=== PATIENT | male | born 1955 | race African-American/Black ===

== ENCOUNTER 2025-04-11 21:12 | Inpatient (IN) | payer MEDICAID ==
[~2025-04-11] VITALS: Ht 182.9 cm; Wt 74.4 kg
[2025-04-11] MEDS ORDERED: ACETAMINOPHEN 325MG TABLET PO ONE (22:00)
[2025-04-11 22:58] LABS: HEMATOCRIT. 34.1 % (42.0-52.0); HEMOGLOBIN. 11.0 g/dL (14.0-18.0); MEAN PLATELET VOLUME 10.3 fl (7.4-10.4); PLATELET 199 x1000/uL (130-400); RED BLOOD CELL COUNT 3.97 mill/uL (4.7-6.1); RED CELL DISTRIBUTION WIDTH 20.5 % (11.6-14.6)
[2025-04-11 23:08] LABS: INR 1.5
[2025-04-11 23:10] LABS: EOSINOPHILS % MANUAL 4.0 % (0.0-5.0); LYMPHOCYTES % MANUAL 5.0 % (20.0-50.0); MONOCYTES % MANUAL 7.0 % (2.0-8.0); NEUTROPHILS % MANUAL 84.0 % (45.0-75.0); PLATELET ESTIMATE NORMAL
[2025-04-11 23:14] LABS: CREATININE 1.2 mg/dL (0.6-1.3); UREA NITROGEN BLOOD 31 mg/dL (9-23)
[2025-04-11 23:15] LABS: TROPONIN I HIGH SENSITIVITY 23 ng/L (3.0-53)
[2025-04-11 23:16] LABS: ASPARTATE AMINOTRANSFERASE 201 IU/L (<34); BILIRUBIN DIRECT 2.3 mg/dL (<=3.0)
[2025-04-11 23:17] LABS: BILIRUBIN TOTAL 4.0 mg/dL (0.1-1.0); PROTEIN TOTAL 7.4 g/dL (6.0-8.3)
[2025-04-12] MEDS: ACETAMINOPHEN 325MG TABLET PO NR (00:55)
[2025-04-12] MEDS: SODIUM CHLORIDE 0.9% 500 ML IV ONE (00:55)
[2025-04-12] MEDS: SODIUM CHLORIDE 0.9% 1,000 ML IV ONE (01:00)
[2025-04-12 02:55] VITALS: BP 144/89; PULSE 78; RESP 13; TEMP 36.3624
[2025-04-12] MEDS ORDERED: ONDANSETRON HCL 4MG/2ML INJ IV PRN (05:45)
[2025-04-12] MEDS ORDERED: ENOXAPARIN 40MG/0.4ML SYR SUBCUT NR (05:45)
[2025-04-12] MEDS: PANTOPRAZOLE 40MG DR TABLET PO SCH (06:33)
[2025-04-12] MEDS: BLOOD SUGAR DIAGNOSTIC STRIP TEST SCH (06:40)
[2025-04-12] MEDS: INSULIN LISPRO 100 UNITS/ML SUBCUT SCH (07:20)
[2025-04-12 08:00] VITALS: BP 152/72; PULSE 83; RESP 18; TEMP 36.3; O2SAT 97
[2025-04-12] MEDS: SODIUM CHLORIDE 0.9% 1,000 ML IV SCH (08:33)
[2025-04-12] MEDS: ENOXAPARIN 40MG/0.4ML SYR SUBCUT SCH (08:33)
[2025-04-12 09:29] LABS: HEMATOCRIT. 33.2 % (42.0-52.0); HEMOGLOBIN. 10.8 g/dL (14.0-18.0); MEAN PLATELET VOLUME 9.3 fl (7.4-10.4); PLATELET 163 x1000/uL (130-400); RED BLOOD CELL COUNT 3.86 mill/uL (4.7-6.1); RED CELL DISTRIBUTION WIDTH 20.1 % (11.6-14.6)
[2025-04-12 09:46] LABS: CREATININE 1.0 mg/dL (0.6-1.3); UREA NITROGEN BLOOD 34 mg/dL (9-23)
[2025-04-12 10:32] LABS: BAND% 4.0 % (1.0-6.0); EOSINOPHILS % MANUAL 1.0 % (0.0-5.0); LYMPHOCYTES % MANUAL 4.0 % (20.0-50.0); MONOCYTES % MANUAL 10.0 % (2.0-8.0); NEUTROPHILS % MANUAL 81.0 % (45.0-75.0); PLATELET ESTIMATE NORMAL
[2025-04-12 12:00] VITALS: BP 157/83; PULSE 83; RESP 13; TEMP 36.7; O2SAT 98
[2025-04-12 16:00] VITALS: BP 149/82; PULSE 97; RESP 21; TEMP 36.4; O2SAT 98
[2025-04-12 19:16] VITALS: BP 171/101; PULSE 95; RESP 16; TEMP 36.4; O2SAT 98
[2025-04-12] MEDS ORDERED: NALOXONE HCL 0.4MG/ML VIAL IV PRN (20:30)
[2025-04-12] MEDS: LEVETIRACETAM 500MG TABLET PO SCH (21:00)
[2025-04-12] MEDS: CLONIDINE 0.1MG TABLET PO PRN (21:22)
[2025-04-12] MEDS ORDERED: LEVETIRACETAM 500MG in NACL 100ML PREMIX IV SCH (22:15)
[2025-04-12] MEDS: HYDRALAZINE 20MG/ML VIAL IV PRN (22:45)
[2025-04-12] MEDS: LEVETIRACETAM 500MG PREMIX 100ML IV SCH (22:45)
[2025-04-13] VITALS: BP 135/106; PULSE 102; RESP 16; TEMP 36.6; O2SAT 98
[2025-04-13 04:00] VITALS: BP 146/119; PULSE 108; RESP 24; TEMP 36.6; O2SAT 96
[2025-04-13 07:27] LABS: HEMATOCRIT. 31.8 % (42.0-52.0); HEMOGLOBIN. 10.7 g/dL (14.0-18.0); MEAN PLATELET VOLUME 9.4 fl (7.4-10.4); PLATELET 158 x1000/uL (130-400); RED BLOOD CELL COUNT 3.76 mill/uL (4.7-6.1); RED CELL DISTRIBUTION WIDTH 20.1 % (11.6-14.6)
[2025-04-13 07:45] LABS: CREATININE 0.9 mg/dL (0.6-1.3)
[2025-04-13 07:46] LABS: UREA NITROGEN BLOOD 33 mg/dL (9-23)
[2025-04-13 08:00] VITALS: BP 167/84; PULSE 102; RESP 24; TEMP 36.7; O2SAT 97
[2025-04-13 09:07] LABS: BG BASE EXCESS 1.2 mmol/L (-2.0-3.0); BG CARBOXYHEMOGLOBIN 0.8 % (0.5-1.5); BG DEOXYHEMOGLOBIN 2.7 % (0.0-5.0); BG HCO3 ACT 24.8 mmol/L (21.0-28.0); BG METHEMOGLOBIN 0.3 % (0.5-1.5); BG OXYGEN SATURATION 97.3 % (94.0-98.0); BG OXYHEMOGLOBIN 96.2 % (94.0-98.0); BG PCO2 35.7 mmHg (35.0-48.0); BG PH 7.460 (7.350-7.450); BG PO2 91.0 mmHg (83.0-108.0); BG SAMPLE SITE RIGHT RADIAL; BG TOTAL HEMOGLOBIN 11.4 g/dL (13.5-17.5); BG VENT MODE ROOM AIR
[2025-04-13 09:56] LABS: CLARITY URINE CLEAR (CLEAR); COLOR URINE DARK YELLOW (YELLOW); GLUCOSE URINE NEGATIVE (NEGATIVE); KETONES URINE 1+ (NEGATIVE); LEUKOCYTE ESTERASE URINE NEGATIVE (NEGATIVE); NITRITE URINE NEGATIVE (NEGATIVE); OCCULT BLOOD URINE TRACE (NEGATIVE); PH URINE 6.0 (4.5-8.0); PROTEIN URINE 1+ (NEGATIVE); SPECIFIC GRAVITY URINE 1.015 (1.005-1.030); UROBILINOGEN URINE >8.0 E.U./dL (0.2-1.0)
[2025-04-13] MEDS: DEXTROSE 5% WATER 1,000 ML IV SCH (09:56)
[2025-04-13 11:14] LABS: FINE GRANULAR CASTS URINE 0-5 /lpf; HYALINE CASTS URINE 0-5 /lpf
[2025-04-13 11:15] LABS: WHITE BLOOD CELL CASTS URINE 0-5 /lpf
[2025-04-13 11:16] LABS: WAXY CASTS URINE 0-5 /lpf; WBC URINE 0-2 /hpf (0-2)
[2025-04-13 11:17] LABS: SQUAMOUS EPITHELIAL CELL URINE FEW /lpf (RARE/1+)
[2025-04-13 11:18] LABS: BACTERIA URINE 1+
[2025-04-13 12:00] VITALS: BP 158/104; PULSE 110; RESP 25; TEMP 36.8; O2SAT 97
[2025-04-13 15:14] LABS: EOSINOPHILS % MANUAL 4.0 % (0.0-5.0); LYMPHOCYTES % MANUAL 7.0 % (20.0-50.0); MONOCYTES % MANUAL 9.0 % (2.0-8.0); NEUTROPHILS % MANUAL 80.0 % (45.0-75.0); PLATELET ESTIMATE NORMAL
[2025-04-13 16:00] VITALS: BP 137/87; PULSE 124; RESP 26; TEMP 36.6; O2SAT 97
[2025-04-13] MEDS: LACTULOSE 20G/30ML UDC GT SCH (17:57)
[2025-04-13 20:00] VITALS: BP 154/98; PULSE 120; RESP 29; TEMP 38.3; O2SAT 95
[2025-04-13] MEDS: ACETAMINOPHEN 650MG/20.3ML UDC PO PRN (22:00)
[2025-04-14] VITALS: BP 127/89; PULSE 116; RESP 27; TEMP 37.4; O2SAT 96
[2025-04-14 04:00] VITALS: BP 156/99; PULSE 113; RESP 28; TEMP 37.2; O2SAT 95
[2025-04-14] MEDS: METOCLOPRAMIDE HCL 10MG/2ML VIAL IV SCH (05:16)
[2025-04-14 06:57] LABS: HEMATOCRIT. 32.6 % (42.0-52.0); HEMOGLOBIN. 11.0 g/dL (14.0-18.0); MEAN PLATELET VOLUME 9.4 fl (7.4-10.4); PLATELET 144 x1000/uL (130-400); RED BLOOD CELL COUNT 3.82 mill/uL (4.7-6.1); RED CELL DISTRIBUTION WIDTH 21.3 % (11.6-14.6)
[2025-04-14 07:08] LABS: CREATININE 1.1 mg/dL (0.6-1.3); UREA NITROGEN BLOOD 32 mg/dL (9-23)
[2025-04-14 08:00] VITALS: BP 127/78; PULSE 113; RESP 32; TEMP 35.9; O2SAT 97
[2025-04-14] MEDS: PANTOPRAZOLE SODIUM 40 MG/VIAL IV SCH (08:41)
[2025-04-14 09:43] LABS: BG BASE EXCESS 1.8 mmol/L (-2.0-3.0); BG CARBOXYHEMOGLOBIN 0.3 % (0.5-1.5); BG DEOXYHEMOGLOBIN 3.7 % (0.0-5.0); BG FLOW(L/min) 0.50 L/min; BG FRACTION INSPIRED OXYGEN 22; BG HCO3 ACT 24.0 mmol/L (21.0-28.0); BG METHEMOGLOBIN 0.3 % (0.5-1.5); BG OXYGEN SATURATION 96.3 % (94.0-98.0); BG OXYHEMOGLOBIN 95.7 % (94.0-98.0); BG PCO2 29.6 mmHg (35.0-48.0); BG PH 7.526 (7.350-7.450); BG PO2 85.8 mmHg (83.0-108.0); BG SAMPLE SITE RIGHT RADIAL; BG TOTAL HEMOGLOBIN 11.3 g/dL (13.5-17.5); BG VENT MODE NASAL CANNULA
[2025-04-14] MEDS: POTASSIUM CHLORIDE 20MEQ TABLET SR PO SCH (10:10)
[2025-04-14 10:43] LABS: BAND% 20.0 % (1.0-6.0); LYMPHOCYTES % MANUAL 7.0 % (20.0-50.0); MONOCYTES % MANUAL 8.0 % (2.0-8.0); NEUTROPHILS % MANUAL 65.0 % (45.0-75.0); PLATELET ESTIMATE NORMAL
[2025-04-14 12:00] VITALS: BP 127/78; PULSE 113; RESP 30; TEMP 37.6; O2SAT 97
[2025-04-14 16:00] VITALS: BP 135/95; PULSE 109; RESP 37; TEMP 37.3; O2SAT 94
[2025-04-14 20:00] VITALS: BP 145/85; PULSE 125; RESP 40; TEMP 37.1; O2SAT 91
[2025-04-15] VITALS (65 sets, daily range): BP systolic 121–186; BP diastolic 76–101; PULSE 101–141; RESP 23–47; TEMP 36.6–39.2; O2SAT 90–98
[2025-04-15 00:17] LABS: BG BASE EXCESS 0.7 mmol/L (-2.0-3.0); BG CARBOXYHEMOGLOBIN 0.8 % (0.5-1.5); BG DEOXYHEMOGLOBIN 7.5 % (0.0-5.0); BG FLOW(L/min) 2.00 L/min; BG FRACTION INSPIRED OXYGEN 28; BG HCO3 ACT 22.0 mmol/L (21.0-28.0); BG METHEMOGLOBIN 0.0 % (0.5-1.5); BG OXYGEN SATURATION 92.4 % (94.0-98.0); BG OXYHEMOGLOBIN 91.7 % (94.0-98.0); BG PCO2 26.2 mmHg (35.0-48.0); BG PH 7.542 (7.350-7.450); BG PO2 61.0 mmHg (83.0-108.0); BG TOTAL HEMOGLOBIN 12.6 g/dL (13.5-17.5); BG VENT MODE NASAL CANNULA
[2025-04-15] MEDS: CEFTRIAXONE 2GM/50ML 50 ML IV SCH (03:05)
[2025-04-15] MEDS: VANCOMYCIN 1.5GM PMX (XELLIA) 300 ML IV SCH (03:43)
[2025-04-15] MEDS: IPRATROPIUM/ALBUTEROL 0.5-3(2.5)MG/3ML NEB HHN SCH (04:42)
[2025-04-15 06:07] LABS: HEMATOCRIT. 34.9 % (42.0-52.0); HEMOGLOBIN. 11.3 g/dL (14.0-18.0); MEAN PLATELET VOLUME 9.8 fl (7.4-10.4); PLATELET 135 x1000/uL (130-400); RED BLOOD CELL COUNT 4.02 mill/uL (4.7-6.1); RED CELL DISTRIBUTION WIDTH 21.1 % (11.6-14.6)
[2025-04-15 06:33] LABS: CREATININE 1.1 mg/dL (0.6-1.3); UREA NITROGEN BLOOD 32 mg/dL (9-23)
[2025-04-15] MEDS ORDERED: POTASSIUM CHLORIDE 40 MEQ in DEXT 5% WATER 230 ML IV ONE (07:15)
[2025-04-15] MEDS: KCL 20MEQ/100ML X 2 FOR TOTAL KCL 40MEQ/200ML IV SCH (08:12)
[2025-04-15] MEDS: MORPHINE SULFATE 2 MG/ML INJ (NOT FOR IM USE) IV PRN (12:59)
[2025-04-15 13:54] LABS: BG BASE EXCESS -2.1 mmol/L (-2.0-3.0); BG CARBOXYHEMOGLOBIN 0.4 % (0.5-1.5); BG DEOXYHEMOGLOBIN 4.1 % (0.0-5.0); BG FLOW(L/min) 20.00 L/min; BG FRACTION INSPIRED OXYGEN 40; BG HCO3 ACT 20.2 mmol/L (21.0-28.0); BG METHEMOGLOBIN 0.0 % (0.5-1.5); BG OXYGEN SATURATION 95.9 % (94.0-98.0); BG OXYHEMOGLOBIN 95.5 % (94.0-98.0); BG PCO2 27.7 mmHg (35.0-48.0); BG PH 7.481 (7.350-7.450); BG PO2 78.2 mmHg (83.0-108.0); BG SAMPLE SITE RIGHT RADIAL; BG TOTAL HEMOGLOBIN 12.0 g/dL (13.5-17.5); BG VENT MODE HIGH FLOW
[2025-04-15 16:30] LABS: BAND% 10.0 % (1.0-6.0); LYMPHOCYTES % MANUAL 7.0 % (20.0-50.0); MONOCYTES % MANUAL 8.0 % (2.0-8.0); NEUTROPHILS % MANUAL 75.0 % (45.0-75.0); PLATELET ESTIMATE NORMAL
[2025-04-15] MEDS: VANCOMYCIN 750MG/150ML (BAXTER) IV SCH (17:09)
[2025-04-15] MEDS: SODIUM CHLORIDE 0.9% 1,000 ML IV SCH (20:31)
[2025-04-15] MEDS: PAMIDRONATE DISODIUM 90 MG in SODIUM CHLORIDE 0.9% 1,000 ML IV SCH (21:02)
[2025-04-16] VITALS (94 sets, daily range): BP systolic 118–175; BP diastolic 79–110; PULSE 108–133; RESP 19–48; TEMP 37–38.1; O2SAT 90–98
[2025-04-16 06:51] LABS: CREATININE 1.0 mg/dL (0.6-1.3)
[2025-04-16 06:52] LABS: UREA NITROGEN BLOOD 35 mg/dL (9-23)
[2025-04-16 07:59] LABS: HEMATOCRIT. 33.8 % (42.0-52.0); HEMOGLOBIN. 11.0 g/dL (14.0-18.0); MEAN PLATELET VOLUME 10.4 fl (7.4-10.4); PLATELET 137 x1000/uL (130-400); RED BLOOD CELL COUNT 3.94 mill/uL (4.7-6.1); RED CELL DISTRIBUTION WIDTH 21.2 % (11.6-14.6)
[2025-04-16] MEDS: METRONIDAZOLE 500 MG PREMIX 100 ML IV SCH (11:51)
[2025-04-16] MEDS ORDERED: CEFEPIME 1GM IN DEXT 5% 50ML IV SCH (12:00)
[2025-04-16 12:53] LABS: BG BASE EXCESS -4.6 mmol/L (-2.0-3.0); BG CARBOXYHEMOGLOBIN 0.6 % (0.5-1.5); BG DEOXYHEMOGLOBIN 3.5 % (0.0-5.0); BG FLOW(L/min) 20.00 L/min; BG FRACTION INSPIRED OXYGEN 40; BG HCO3 ACT 18.3 mmol/L (21.0-28.0); BG METHEMOGLOBIN 0.2 % (0.5-1.5); BG OXYGEN SATURATION 96.5 % (94.0-98.0); BG OXYHEMOGLOBIN 95.7 % (94.0-98.0); BG PCO2 27.7 mmHg (35.0-48.0); BG PH 7.439 (7.350-7.450); BG PO2 85.5 mmHg (83.0-108.0); BG SAMPLE SITE RIGHT RADIAL; BG TOTAL HEMOGLOBIN 11.7 g/dL (13.5-17.5); BG VENT MODE HIGH FLOW
[2025-04-16] MEDS: CEFEPIME 2GM PREMIX 100ML IV SCH (14:01)
[2025-04-16 14:21] LABS: BAND% 31.0 % (1.0-6.0); LYMPHOCYTES % MANUAL 4.0 % (20.0-50.0); MONOCYTES % MANUAL 5.0 % (2.0-8.0); NEUTROPHILS % MANUAL 60.0 % (45.0-75.0); NUCLEATED RED BLOOD CELLS 1 /100 WBC
[2025-04-16 14:22] LABS: PLATELET ESTIMATE NORMAL
[2025-04-16] MEDS: FUROSEMIDE 40MG/4ML VIAL IVP SCH (15:46)
[2025-04-16] MEDS: LEVOFLOXACIN 750MG PREMIX 150 ML IV SCH (17:26)
[2025-04-16] MEDS: BISACODYL 10MG SUPP PR SCH (17:49)
[2025-04-17] VITALS (74 sets, daily range): BP systolic 115–167; BP diastolic 75–102; PULSE 106–144; RESP 25–47; TEMP 36.7–38.3; O2SAT 91–99
[2025-04-17 06:46] LABS: CREATININE 0.9 mg/dL (0.6-1.3); UREA NITROGEN BLOOD 36 mg/dL (9-23)
[2025-04-17 06:47] LABS: HEMATOCRIT. 30.5 % (42.0-52.0); HEMOGLOBIN. 10.0 g/dL (14.0-18.0); MEAN PLATELET VOLUME 9.8 fl (7.4-10.4); PLATELET 115 x1000/uL (130-400); RED BLOOD CELL COUNT 3.56 mill/uL (4.7-6.1); RED CELL DISTRIBUTION WIDTH 21.1 % (11.6-14.6)
[2025-04-17 06:48] LABS: ASPARTATE AMINOTRANSFERASE 307 IU/L (<34)
[2025-04-17 06:49] LABS: BILIRUBIN DIRECT 2.6 mg/dL (<=3.0); BILIRUBIN TOTAL 3.4 mg/dL (0.1-1.0); PHOSPHORUS 1.2 mg/dL (2.5-4.9); PROTEIN TOTAL 6.2 g/dL (6.0-8.3)
[2025-04-17] MEDS: POTASSIUM CHLORIDE 20MEQ/PACKET PO SCH (08:30)
[2025-04-17] MEDS: MAGNESIUM 2 G PREMIX 50 ML IV SCH (08:30)
[2025-04-17 09:53] LABS: BG BASE EXCESS -3.0 mmol/L (-2.0-3.0); BG CARBOXYHEMOGLOBIN 0.6 % (0.5-1.5); BG DEOXYHEMOGLOBIN 2.7 % (0.0-5.0); BG FLOW(L/min) 20.00 L/min; BG FRACTION INSPIRED OXYGEN 40; BG HCO3 ACT 19.1 mmol/L (21.0-28.0); BG METHEMOGLOBIN 0.3 % (0.5-1.5); BG OXYGEN SATURATION 97.3 % (94.0-98.0); BG OXYHEMOGLOBIN 96.4 % (94.0-98.0); BG PCO2 25.5 mmHg (35.0-48.0); BG PH 7.493 (7.350-7.450); BG PO2 87.6 mmHg (83.0-108.0); BG SAMPLE SITE RIGHT RADIAL; BG TOTAL HEMOGLOBIN 11.0 g/dL (13.5-17.5); BG VENT MODE HIGH FLOW
[2025-04-17] MEDS: POTASSIUM PHOSPHATE 30 MMOL in DEXT 5% WATER 490 ML IV SCH (10:52)
[2025-04-17 12:28] LABS: BAND% 33.0 % (1.0-6.0); LYMPHOCYTES % MANUAL 5.0 % (20.0-50.0); MONOCYTES % MANUAL 7.0 % (2.0-8.0); NEUTROPHILS % MANUAL 55.0 % (45.0-75.0); PLATELET ESTIMATE DECREASED
[2025-04-17] MEDS: LACTULOSE 20G/30ML UDC GT SCH (13:09)
[2025-04-18] VITALS (59 sets, daily range): BP systolic 115–160; BP diastolic 79–114; PULSE 113–127; RESP 18–46; TEMP 36.7–37.8; O2SAT 94–99
[2025-04-18 05:53] LABS: CREATININE 0.9 mg/dL (0.6-1.3)
[2025-04-18 05:54] LABS: UREA NITROGEN BLOOD 40 mg/dL (9-23)
[2025-04-18 05:56] LABS: PHOSPHORUS 1.9 mg/dL (2.5-4.9)
[2025-04-18 06:28] LABS: HEMATOCRIT. 31.4 % (42.0-52.0); HEMOGLOBIN. 9.9 g/dL (14.0-18.0); MEAN PLATELET VOLUME 10.3 fl (7.4-10.4); PLATELET 112 x1000/uL (130-400); RED BLOOD CELL COUNT 3.59 mill/uL (4.7-6.1); RED CELL DISTRIBUTION WIDTH 21.5 % (11.6-14.6)
[2025-04-18 07:49] LABS: BAND% 12.0 % (1.0-6.0); EOSINOPHILS % MANUAL 1.0 % (0.0-5.0); LYMPHOCYTES % MANUAL 6.0 % (20.0-50.0); MONOCYTES % MANUAL 11.0 % (2.0-8.0); NEUTROPHILS % MANUAL 70.0 % (45.0-75.0)
[2025-04-18 07:50] LABS: PLATELET ESTIMATE SLIGHTLY DECREASED
[2025-04-18 08:59] LABS: BG BASE EXCESS -2.5 mmol/L (-2.0-3.0); BG CARBOXYHEMOGLOBIN 0.8 % (0.5-1.5); BG DEOXYHEMOGLOBIN 2.4 % (0.0-5.0); BG FLOW(L/min) 20.00 L/min; BG FRACTION INSPIRED OXYGEN 30; BG HCO3 ACT 20.8 mmol/L (21.0-28.0); BG METHEMOGLOBIN 0.1 % (0.5-1.5); BG OXYGEN SATURATION 97.6 % (94.0-98.0); BG OXYHEMOGLOBIN 96.7 % (94.0-98.0); BG PCO2 30.6 mmHg (35.0-48.0); BG PH 7.451 (7.350-7.450); BG PO2 97.1 mmHg (83.0-108.0); BG SAMPLE SITE RIGHT RADIAL; BG TOTAL HEMOGLOBIN 9.5 g/dL (13.5-17.5); BG VENT MODE HIGH FLOW
[2025-04-18] MEDS: DEXTROSE 5% WATER 1,000 ML IV SCH (15:25)
[2025-04-18] MEDS: POTASSIUM PHOSPHATE 15 MMOL in DEXT 5% WATER 245 ML IV SCH (17:27)
[2025-04-19] VITALS (27 sets, daily range): BP systolic 122–155; BP diastolic 81–108; PULSE 96–121; RESP 14–37; TEMP 36.8–37.4; O2SAT 95–98
[2025-04-19] MEDS: HYDROMORPHONE HCL/PF 1MG/ML INJ IV PRN (00:59)
[2025-04-19 06:46] LABS: HEMATOCRIT. 30.4 % (42.0-52.0); HEMOGLOBIN. 9.7 g/dL (14.0-18.0); MEAN PLATELET VOLUME 10.1 fl (7.4-10.4); PLATELET 122 x1000/uL (130-400); RED BLOOD CELL COUNT 3.49 mill/uL (4.7-6.1); RED CELL DISTRIBUTION WIDTH 21.9 % (11.6-14.6)
[2025-04-19 07:01] LABS: CREATININE 0.9 mg/dL (0.6-1.3); UREA NITROGEN BLOOD 36 mg/dL (9-23)
[2025-04-19 07:03] LABS: PHOSPHORUS 1.8 mg/dL (2.5-4.9)
[2025-04-19 09:59] LABS: BAND% 17.0 % (1.0-6.0); EOSINOPHILS % MANUAL 1.0 % (0.0-5.0); LYMPHOCYTES % MANUAL 6.0 % (20.0-50.0); MONOCYTES % MANUAL 15.0 % (2.0-8.0); NEUTROPHILS % MANUAL 61.0 % (45.0-75.0); PLATELET ESTIMATE SLIGHTLY DECREASED
[2025-04-19] MEDS: POTASSIUM PHOSPHATE 20 MMOL in DEXT 5% WATER 243.3333 ML IV ONE (10:42)
[2025-04-19] MEDS ORDERED: NALOXONE HCL 0.4MG/ML VIAL IV PRN (11:00)
[2025-04-19] MEDS: HYDROCODONE/ACETAMINOPHEN 5/325MG TABLET PO PRN (13:54)
[2025-04-20] VITALS (8 sets, daily range): BP systolic 119–138; BP diastolic 73–86; PULSE 103–116; RESP 18–28; TEMP 36.2–37.1; O2SAT 93–97
[2025-04-20 06:55] LABS: HEMATOCRIT. 30.1 % (42.0-52.0); HEMOGLOBIN. 9.7 g/dL (14.0-18.0); MEAN PLATELET VOLUME 10.4 fl (7.4-10.4); PLATELET 157 x1000/uL (130-400); RED BLOOD CELL COUNT 3.48 mill/uL (4.7-6.1); RED CELL DISTRIBUTION WIDTH 21.5 % (11.6-14.6)
[2025-04-20 07:07] LABS: CREATININE 0.8 mg/dL (0.6-1.3); UREA NITROGEN BLOOD 30 mg/dL (9-23)
[2025-04-20 07:09] LABS: PHOSPHORUS 1.2 mg/dL (2.5-4.9)
[2025-04-20] MEDS: SODIUM CHLORIDE 0.45% 1,000 ML IV ONE (07:31)
[2025-04-20 09:43] LABS: BAND% 13.0 % (1.0-6.0); EOSINOPHILS % MANUAL 1.0 % (0.0-5.0); LYMPHOCYTES % MANUAL 2.0 % (20.0-50.0); MONOCYTES % MANUAL 14.0 % (2.0-8.0); NEUTROPHILS % MANUAL 70.0 % (45.0-75.0); PLATELET ESTIMATE NORMAL
[2025-04-20] MEDS: FUROSEMIDE 20MG/2ML VIAL IVP SCH (12:54)
[2025-04-20] MEDS: POTASSIUM PHOSPHATE 20 MMOL in DEXT 5% WATER 243.3333 ML IV NR (15:25)
[2025-04-20 15:29] LABS: BG BASE EXCESS -0.5 mmol/L (-2.0-3.0); BG CARBOXYHEMOGLOBIN 0.3 % (0.5-1.5); BG DEOXYHEMOGLOBIN 3.8 % (0.0-5.0); BG FLOW(L/min) 1.00 L/min; BG FRACTION INSPIRED OXYGEN 24; BG HCO3 ACT 22.5 mmol/L (21.0-28.0); BG METHEMOGLOBIN 0.3 % (0.5-1.5); BG OXYGEN SATURATION 96.2 % (94.0-98.0); BG OXYHEMOGLOBIN 95.6 % (94.0-98.0); BG PCO2 31.5 mmHg (35.0-48.0); BG PH 7.472 (7.350-7.450); BG PO2 83.1 mmHg (83.0-108.0); BG SAMPLE SITE RIGHT RADIAL; BG TOTAL HEMOGLOBIN 10.6 g/dL (13.5-17.5); BG VENT MODE NASAL CANNULA
[2025-04-20] MEDS: POTASSIUM PHOSPHATE 10 MMOL in DEXT 5% WATER 246.6667 ML IV NR (18:49)
[2025-04-21] VITALS: BP 122/77; PULSE 105; RESP 18; TEMP 36.5; O2SAT 96
[2025-04-21 03:56] VITALS: BP 127/77; PULSE 101; RESP 18; TEMP 36.6; O2SAT 98
[2025-04-21 05:52] LABS: CREATININE 0.7 mg/dL (0.6-1.3); UREA NITROGEN BLOOD 28 mg/dL (9-23)
[2025-04-21 05:54] LABS: PHOSPHORUS 1.7 mg/dL (2.5-4.9)
[2025-04-21 06:57] LABS: HEMATOCRIT. 30.2 % (42.0-52.0); HEMOGLOBIN. 9.7 g/dL (14.0-18.0); MEAN PLATELET VOLUME 11.1 fl (7.4-10.4); PLATELET 173 x1000/uL (130-400); RED BLOOD CELL COUNT 3.48 mill/uL (4.7-6.1); RED CELL DISTRIBUTION WIDTH 21.4 % (11.6-14.6)
[2025-04-21 08:00] VITALS: BP 134/87; PULSE 103; RESP 21; TEMP 37; O2SAT 98
[2025-04-21] MEDS: POTASSIUM PHOSPHATE 15 MMOL in DEXT 5% WATER 245 ML IV SCH (09:03)
[2025-04-21 12:00] VITALS: BP 117/84; PULSE 105; RESP 24; TEMP 36.9; O2SAT 98
[2025-04-21] MEDS: FUROSEMIDE 20MG/2ML VIAL IVP NR (14:15)
[2025-04-21 16:00] VITALS: BP 122/71; PULSE 108; RESP 20; TEMP 36.7; O2SAT 98
[2025-04-21] MEDS: SODIUM PHOSPHATE 20 MMOL in DEXT 5% WATER 243.3333 ML IV SCH (17:48)
[2025-04-21 19:46] LABS: EOSINOPHILS % MANUAL 1.0 % (0.0-5.0); LYMPHOCYTES % MANUAL 6.0 % (20.0-50.0); MONOCYTES % MANUAL 11.0 % (2.0-8.0); NEUTROPHILS % MANUAL 82.0 % (45.0-75.0); PLATELET ESTIMATE NORMAL
[2025-04-21 20:00] VITALS: BP 123/86; PULSE 105; RESP 18; TEMP 37.1; O2SAT 96
[2025-04-22] VITALS (7 sets, daily range): BP systolic 122–143; BP diastolic 72–86; PULSE 87–100; RESP 17–20; TEMP 36.4–37.4; O2SAT 96–98
[2025-04-22 07:36] LABS: CREATININE 0.7 mg/dL (0.6-1.3); UREA NITROGEN BLOOD 27 mg/dL (9-23)
[2025-04-22 07:38] LABS: PHOSPHORUS 2.2 mg/dL (2.5-4.9)
[2025-04-22 08:05] LABS: HEMATOCRIT. 28.6 % (42.0-52.0); HEMOGLOBIN. 9.2 g/dL (14.0-18.0); MEAN PLATELET VOLUME 11.1 fl (7.4-10.4); PLATELET 197 x1000/uL (130-400); RED BLOOD CELL COUNT 3.28 mill/uL (4.7-6.1); RED CELL DISTRIBUTION WIDTH 21.2 % (11.6-14.6)
[2025-04-22] MEDS: PAMIDRONATE DISODIUM IV SCH (10:03)
[2025-04-22] MEDS: SODIUM CHLORIDE 0.9% IV SCH (10:03)
[2025-04-22 16:17] LABS: LYMPHOCYTES % MANUAL 1.0 % (20.0-50.0); MONOCYTES % MANUAL 10.0 % (2.0-8.0); NEUTROPHILS % MANUAL 89.0 % (45.0-75.0); PLATELET ESTIMATE NORMAL
[2025-04-22] MEDS: POTASSIUM PHOSPHATE 15 MMOL in DEXT 5% WATER 245 ML IV SCH (20:32)
[2025-04-23] VITALS: BP 131/75; PULSE 92; RESP 20; TEMP 36.3; O2SAT 97
[2025-04-23 04:00] VITALS: BP 120/75; PULSE 90; RESP 20; TEMP 36.2; O2SAT 97
[2025-04-23 07:51] LABS: CREATININE 0.6 mg/dL (0.6-1.3); UREA NITROGEN BLOOD 26 mg/dL (9-23)
[2025-04-23 07:53] LABS: PHOSPHORUS 2.0 mg/dL (2.5-4.9)
[2025-04-23 08:42] VITALS: BP 128/81; PULSE 109; RESP 18; TEMP 37.1; O2SAT 95
[2025-04-23 08:42] LABS: BASOPHILS % 0.2 % (0.0-2.0); EOSINOPHILS % 1.3 % (0.0-5.0); HEMATOCRIT. 31.4 % (42.0-52.0); HEMOGLOBIN. 9.9 g/dL (14.0-18.0); LYMPHOCYTES % 11.0 % (20.0-50.0); MEAN PLATELET VOLUME 11.1 fl (7.4-10.4); MONOCYTES % 3.6 % (2.0-8.0); NEUTROPHILS % 83.9 % (40.0-76.0); PLATELET 238 x1000/uL (130-400); RED BLOOD CELL COUNT 3.58 mill/uL (4.7-6.1); RED CELL DISTRIBUTION WIDTH 21.2 % (11.6-14.6)
[2025-04-23 08:51] LABS: ASPARTATE AMINOTRANSFERASE 395 IU/L (<34); BILIRUBIN DIRECT 2.8 mg/dL (<=3.0); BILIRUBIN TOTAL 4.2 mg/dL (0.1-1.0); PROTEIN TOTAL 6.3 g/dL (6.0-8.3)
[2025-04-23 09:10] LABS: INR 1.3
[2025-04-23 12:15] VITALS: BP 124/83; PULSE 109; RESP 18; TEMP 36.6; O2SAT 98
[2025-04-23] MEDS: POTASSIUM PHOSPHATE 15 MMOL in DEXT 5% WATER 245 ML IV NR (12:51)
[2025-04-23 16:00] VITALS: BP_SYST 121; BP_SYST 127; BP_DIAS 66; BP_DIAS 76; PULSE 96; PULSE 97; RESP 18; TEMP 37.2; O2SAT 97; O2SAT 98
[2025-04-23 20:00] VITALS: BP 114/77; PULSE 99; RESP 17; TEMP 36.4; O2SAT 96
[2025-04-24] VITALS: BP 123/73; PULSE 98; RESP 18; TEMP 36.2; O2SAT 93
[2025-04-24 04:00] VITALS: BP 130/80; PULSE 101; RESP 18; TEMP 36.3; O2SAT 94
[2025-04-24 05:03] LABS: HEMATOCRIT. 29.2 % (42.0-52.0); HEMOGLOBIN. 9.2 g/dL (14.0-18.0); MEAN PLATELET VOLUME 10.9 fl (7.4-10.4); PLATELET 230 x1000/uL (130-400); RED BLOOD CELL COUNT 3.34 mill/uL (4.7-6.1); RED CELL DISTRIBUTION WIDTH 21.5 % (11.6-14.6)
[2025-04-24 05:25] LABS: CREATININE 0.7 mg/dL (0.6-1.3); UREA NITROGEN BLOOD 27 mg/dL (9-23)
[2025-04-24 05:27] LABS: PHOSPHORUS 1.9 mg/dL (2.5-4.9)
[2025-04-24 08:00] VITALS: BP 130/75; PULSE 94; RESP 18; TEMP 36.3; O2SAT 98
[2025-04-24 09:55] LABS: BAND% 24.0 % (1.0-6.0); LYMPHOCYTES % MANUAL 1.0 % (20.0-50.0); MONOCYTES % MANUAL 7.0 % (2.0-8.0); NEUTROPHILS % MANUAL 68.0 % (45.0-75.0); PLATELET ESTIMATE NORMAL
[2025-04-24 12:00] VITALS: BP 132/77; PULSE 88; RESP 18; TEMP 35.9; O2SAT 99
[2025-04-24] MEDS: DEXT 5%/0.2% NACL 1,000 ML IV SCH (14:00)
[2025-04-24] MEDS: GUAIFENESIN-DM 200MG-20MG/10ML UDC PO PRN (14:24)
[2025-04-24] MEDS: CEFTRIAXONE 1GM/50ML 50 ML IV SCH (14:25)
[2025-04-24] MEDS: POTASSIUM-SODIUM PHOSPHATE POWDER PACKET PO SCH (14:25)
[2025-04-24] MEDS ORDERED: HYDRALAZINE 10 MG in SODIUM CHLORIDE 0.9% 49.5 ML IV PRN (14:45)
[2025-04-24 16:00] VITALS: BP 125/80; PULSE 98; RESP 20; TEMP 36.2; O2SAT 98
[2025-04-24 20:00] VITALS: BP 125/71; PULSE 75; RESP 19; TEMP 37.3; O2SAT 98
[2025-04-24] MEDS: ACETYLCYSTEINE 200MG/ML 20% VIAL 4ML INH SCH (22:00)
[2025-04-25] VITALS: BP 125/77; PULSE 86; RESP 20; TEMP 36.7; O2SAT 98
[2025-04-25 04:00] VITALS: BP 135/79; PULSE 79; RESP 18; TEMP 36.3; O2SAT 99
[2025-04-25 07:50] LABS: HEMATOCRIT. 29.9 % (42.0-52.0); HEMOGLOBIN. 9.8 g/dL (14.0-18.0); MEAN PLATELET VOLUME 10.2 fl (7.4-10.4); PLATELET 236 x1000/uL (130-400); RED BLOOD CELL COUNT 3.42 mill/uL (4.7-6.1); RED CELL DISTRIBUTION WIDTH 22.3 % (11.6-14.6)
[2025-04-25 07:56] LABS: CREATININE 0.6 mg/dL (0.6-1.3); UREA NITROGEN BLOOD 23 mg/dL (9-23)
[2025-04-25 07:59] LABS: PHOSPHORUS 1.9 mg/dL (2.5-4.9)
[2025-04-25 08:00] VITALS: BP 137/77; PULSE 90; RESP 20; TEMP 36.2; O2SAT 98
[2025-04-25 12:00] VITALS: BP 130/76; PULSE 91; RESP 20; TEMP 36.3; O2SAT 99
[2025-04-25 16:00] VITALS: BP 133/84; PULSE 94; RESP 20; TEMP 36.1; O2SAT 97
[2025-04-25 18:12] LABS: EOSINOPHILS % MANUAL 1.0 % (0.0-5.0); LYMPHOCYTES % MANUAL 5.0 % (20.0-50.0); MONOCYTES % MANUAL 4.0 % (2.0-8.0); NEUTROPHILS % MANUAL 90.0 % (45.0-75.0); PLATELET ESTIMATE NORMAL
[2025-04-25 20:00] VITALS: BP 128/74; PULSE 90; RESP 20; TEMP 36.3; O2SAT 100
[2025-04-26] VITALS (7 sets, daily range): BP systolic 126–144; BP diastolic 72–86; PULSE 65–102; RESP 16–22; TEMP 36.2–36.7; O2SAT 95–100
[2025-04-26 10:43] LABS: BASOPHILS % 0.1 % (0.0-2.0); EOSINOPHILS % 1.1 % (0.0-5.0); HEMATOCRIT. 30.9 % (42.0-52.0); HEMOGLOBIN. 10.2 g/dL (14.0-18.0); LYMPHOCYTES % 10.7 % (20.0-50.0); MEAN PLATELET VOLUME 10.2 fl (7.4-10.4); MONOCYTES % 5.9 % (2.0-8.0); NEUTROPHILS % 82.2 % (40.0-76.0); PLATELET 256 x1000/uL (130-400); RED BLOOD CELL COUNT 3.54 mill/uL (4.7-6.1); RED CELL DISTRIBUTION WIDTH 22.5 % (11.6-14.6)
[2025-04-26 10:44] LABS: CREATININE 0.5 mg/dL (0.6-1.3)
[2025-04-26 10:45] LABS: ADD RBC MORPHOLOGY NO; UREA NITROGEN BLOOD 22 mg/dL (9-23)
[2025-04-26 10:47] LABS: PHOSPHORUS 1.8 mg/dL (2.5-4.9)
[2025-04-26] MEDS: POTASSIUM-SODIUM PHOSPHATE POWDER PACKET PO NR (15:39)
[2025-04-26] MEDS: IPRATROPIUM/ALBUTEROL 0.5-3(2.5)MG/3ML NEB HHN PRN (17:18)
[2025-04-27] VITALS (8 sets, daily range): BP systolic 133–155; BP diastolic 76–91; PULSE 85–114; RESP 19–30; TEMP 36.2–36.8; O2SAT 92–100
[2025-04-27 06:26] LABS: HEMATOCRIT. 33.7 % (42.0-52.0); HEMOGLOBIN. 10.8 g/dL (14.0-18.0); MEAN PLATELET VOLUME 10.5 fl (7.4-10.4); PLATELET 294 x1000/uL (130-400); RED BLOOD CELL COUNT 3.80 mill/uL (4.7-6.1); RED CELL DISTRIBUTION WIDTH 24.5 % (11.6-14.6)
[2025-04-27 06:35] LABS: UREA NITROGEN BLOOD 20 mg/dL (9-23)
[2025-04-27 06:37] LABS: CREATININE 0.6 mg/dL (0.6-1.3)
[2025-04-27 06:39] LABS: ASPARTATE AMINOTRANSFERASE 401 IU/L (<34); BILIRUBIN DIRECT 3.8 mg/dL (<=3.0); BILIRUBIN TOTAL 5.8 mg/dL (0.1-1.0); PHOSPHORUS 2.3 mg/dL (2.5-4.9); PROTEIN TOTAL 6.4 g/dL (6.0-8.3)
[2025-04-27] MEDS: GLUCAGON,HUMAN RECOMBINANT 1MG/VIAL IM NR (08:33)
[2025-04-27 11:55] LABS: BAND% 5.0 % (1.0-6.0); EOSINOPHILS % MANUAL 1.0 % (0.0-5.0); LYMPHOCYTES % MANUAL 6.0 % (20.0-50.0); MONOCYTES % MANUAL 6.0 % (2.0-8.0); NEUTROPHILS % MANUAL 82.0 % (45.0-75.0); NUCLEATED RED BLOOD CELLS 1 /100 WBC
[2025-04-27 11:56] LABS: PLATELET ESTIMATE NORMAL
[2025-04-28] VITALS (8 sets, daily range): BP systolic 117–137; BP diastolic 64–86; PULSE 60–101; RESP 18–30; TEMP 36.2–37.1; O2SAT 95–100
[2025-04-29] VITALS (8 sets, daily range): BP systolic 115–128; BP diastolic 66–73; PULSE 82–91; RESP 17–21; TEMP 36–36.6; O2SAT 97–100
[2025-04-29 06:35] LABS: INR 1.4
[2025-04-29 06:48] LABS: BASOPHILS % 0.2 % (0.0-2.0); EOSINOPHILS % 1.0 % (0.0-5.0); HEMATOCRIT. 25.9 % (42.0-52.0); HEMOGLOBIN. 8.5 g/dL (14.0-18.0); LYMPHOCYTES % 19.4 % (20.0-50.0); MEAN PLATELET VOLUME 10.1 fl (7.4-10.4); MONOCYTES % 6.8 % (2.0-8.0); NEUTROPHILS % 72.6 % (40.0-76.0); PLATELET 220 x1000/uL (130-400); RED BLOOD CELL COUNT 2.87 mill/uL (4.7-6.1); RED CELL DISTRIBUTION WIDTH 24.3 % (11.6-14.6)
[2025-04-29 06:59] LABS: UREA NITROGEN BLOOD 17 mg/dL (9-23)
[2025-04-29 07:01] LABS: ASPARTATE AMINOTRANSFERASE 282 IU/L (<34); BILIRUBIN TOTAL 6.7 mg/dL (0.1-1.0)
[2025-04-29 07:02] LABS: PROTEIN TOTAL 5.5 g/dL (6.0-8.3)
[2025-04-29 07:08] LABS: CREATININE 0.4 mg/dL (0.6-1.3)
[2025-04-29] MEDS: DEXT 5%/0.45% NACL 1000ML 1,000 ML IV SCH (08:30)
[2025-04-30] VITALS (7 sets, daily range): BP systolic 125–141; BP diastolic 67–78; PULSE 88–94; RESP 18–20; TEMP 35.8–36.4; O2SAT 97–100
[2025-04-30] MEDS: DEXTROSE 50% WATER 50ML SYRINGE IV PRN (08:13)
[2025-05-01] VITALS (7 sets, daily range): BP systolic 121–135; BP diastolic 72–78; PULSE 91–95; RESP 17–20; TEMP 35.8–36.7; O2SAT 96–100
== END 2025-05-01 19:18 | disposition short-term general hospital (02) | DRG 720 ==
LOC: ER 21:12 → 3WST 04-12 00:57 → EDBEDREQDT 04-12 01:05 → EDBEDREQTM 04-12 01:05 → EDBEDREQ 04-12 01:05 → ENRESERV 04-12 01:30 → CVICU 04-15 00:59 → 5EST 04-19 06:19 → 7WST 04-19 22:55 → 6EST 04-23 22:58
PROVIDERS: ADMIT Internal Medicine; ATTEND Internal Medicine
PROC: 5A0945A Assistance with Respiratory Ventilation, 24-96 Consecutive Hours, High Flow/Velocity Cannula (ICD-10-PCS; principal; 2025-04-15)
DX: A41.9 Sepsis, unspecified organism (principal); J96.01 Acute respiratory failure with hypoxia; K55.059 Acute (reversible) ischemia of intestine, part and extent unspecified; I81 Portal vein thrombosis; J69.0 Pneumonitis due to inhalation of food and vomit; G92.8 Other toxic encephalopathy; E72.20 Disorder of urea cycle metabolism, unspecified; E11.51 Type 2 diabetes mellitus with diabetic peripheral angiopathy without gangrene; I10 Essential (primary) hypertension; I70.201 Unspecified atherosclerosis of native arteries of extremities, right leg; F10.10 Alcohol abuse, uncomplicated; C78.7 Secondary malignant neoplasm of liver and intrahepatic bile duct; R65.20 Severe sepsis without septic shock; D64.9 Anemia, unspecified; E78.5 Hyperlipidemia, unspecified; E83.52 Hypercalcemia; E87.0 Hyperosmolality and hypernatremia; R59.0 Localized enlarged lymph nodes; E87.6 Hypokalemia; R47.02 Dysphasia; B19.20 Unspecified viral hepatitis C without hepatic coma; E83.39 Other disorders of phosphorus metabolism; Z66 Do not resuscitate; R13.10 Dysphagia, unspecified; R16.2 Hepatomegaly with splenomegaly, not elsewhere classified; F41.9 Anxiety disorder, unspecified; F17.210 Nicotine dependence, cigarettes, uncomplicated; G40.909 Epilepsy, unspecified, not intractable, without status epilepticus; Z74.01 Bed confinement status; F12.90 Cannabis use, unspecified, uncomplicated; Z90.49 Acquired absence of other specified parts of digestive tract; Z85.05 Personal history of malignant neoplasm of liver; Z51.5 Encounter for palliative care; Z82.49 Family history of ischemic heart disease and other diseases of the circulatory system; Z83.3 Family history of diabetes mellitus; Z85.831 Personal history of malignant neoplasm of soft tissue
CPT/HCPCS: 36415; 36600; 70551; 71045; 74018; 74176; 76700; 80048; 80053; 80076; 80202; 81003; 82140; 82306; 82330; 82375; 82805; 82962; 83036; 83735; 83970; 84100; 84484; 85025; 87070; 87077; 87186; 92610; 93005; 94003; 94070; 94640; 94664; 94760; 97110; 97161; 98960; 99291; A4606; J0360; J0692; J0696; J1171; J1610; J1650; J1938; J1953; J1956; J2270; J2430; J2470; J2765; J3373; J3475; J3480; J3490; J7030; J7040; J7060; J7070; J7608